=== PATIENT | female | born 1970 | race Caucasian/White ===

== ENCOUNTER 2016-09-25 13:56 | Emergency (ER) | payer SELFPAY ==
[2016-09-25 14:25] VITALS: BP 147/94
--- NOTE | 2016-09-25 14:32 | ER Document Report ---
ED Medical Screen (RME) - General Stated Complaint: POSSIBLE ALCOHOL WITHDRAW Notes: 46 yo female presents for alcohol withdrawl. brought to ED by mobile crisis. pt has referral for [facility] for detox. pt has hx/o seizures with ETOH withdrawl. last drink several hours ago. drinks 1 1/2 gallons wine/day. presently pt feels "tired and sick". no SI/HI. presently no tremors - Related Data Allergies/Adverse Reactions: No Known Allergies Allergy (Unverified 09/25/16 14:28) Physical Exam - Vital signs Vitals: Temp Pulse BP Pulse Ox 98.2 F 104 H 147/94 H 96 09/25/16 14:23 09/25/16 14:23 09/25/16 14:23 09/25/16 14:23 Course - Vital Signs Vital signs: Temp Pulse Resp BP Pulse Ox 98.2 F 104 H 18 147/94 H 96 09/25/16 14:24 09/25/16 14:24 09/25/16 14:24 09/25/16 14:24 09/25/16 14:24
[2016-09-25 14:56] LABS: APPEARANCE,URINE SLIGHTLY-CLOUDY; BILIRUBIN,URINE NEGATIVE (NEGATIVE); GLUCOSE, URINE NEGATIVE (NEGATIVE); KETONES,URINE NEGATIVE (NEGATIVE); LEUKOCYTE ESTERASE,URINE NEGATIVE (NEGATIVE); NITRITE,URINE NEGATIVE (NEGATIVE); PROTEIN,URINE NEGATIVE (NEGATIVE); URINE SPECIFIC GRAVITY 1.012; UROBILINOGEN,URINE NEGATIVE mg/dL (<2.0)
[2016-09-25] MEDS ORDERED: NORMAL SALINE 1000 ML 1,000 ML with POTASSIUM CHLORIDE 20 MEQ, MAGNESIUM SULFATE 8 MEQ,... IV PRN ×5 (14:56)
[2016-09-25 15:04] LABS: ABSOLUTE BASOPHILS # (AUTO) 0.1 10^3/uL (0.0-0.2); ABSOLUTE LYMPHOCYTES (AUTO) 1.5 10^3/uL (0.5-4.7); ABSOLUTE MONOCYTES (AUTO) 0.5 10^3/uL (0.1-1.4); ABSOLUTE NEUT (AUTO) 4.4 10^3/uL (1.7-8.2); EOSINOPHILS % (AUTO) 0.7 % (0-6); HEMATOCRIT 40.7 % (36.0-47.0); HEMOGLOBIN 13.4 g/dL (12.0-15.5); HGB HCT DIFFERENCE -0.5; LYMPHOCYTES % (AUTO) 23.1 % (13-45); MEAN CORPUSCULAR HEMOGLOBIN 33.5 pg (27.0-33.4); MEAN CORPUSCULAR VOLUME 102 fl (80-97); MONOCYTES % (AUTO) 8.3 % (3-13); RED BLOOD COUNT 4.01 10^6/uL (3.72-5.28); RED CELL DISTRIBUTION WIDTH 14.1 % (11.5-14.0); SEGMENTED NEUTROPHILS % (AUTO) 66.9 % (42-78); WHITE BLOOD COUNT 6.5 10^3/uL (4.0-10.5)
[2016-09-25 15:09] LABS: ALANINE AMINOTRANSFERASE 47 U/L (9-52); ALBUMIN 4.8 g/dL (3.5-5.0); ALCOHOL 224 mg/dL (NONE DETECTED); ALKALINE PHOSPHATASE 112 U/L (38-126); ANION GAP 13 (5-19); ASPARTATE AMINO TRANSFERASE 69 U/L (14-36); BILIRUBIN,TOTAL 0.5 mg/dL (0.2-1.3); BLOOD UREA NITROGEN 12 mg/dL (7-20); CALCIUM 9.3 mg/dL (8.4-10.2); CARBON DIOXIDE 26 mmol/L (22-30); CHLORIDE 104 mmol/L (98-107); CREATININE RESULT 0.79 mg/dL (0.52-1.25); GLUCOSE 93 mg/dL (75-110); POTASSIUM 4.4 mmol/L (3.6-5.0); SODIUM 143.3 mmol/L (137-145); TOTAL PROTEIN 7.8 g/dL (6.3-8.2)
--- NOTE | 2016-09-25 15:28 | ER Document Report ---
ED Substance Abuse / Acc. OD - General Mode of Arrival: Ambulatory Information source: Patient TRAVEL OUTSIDE OF THE [place] IN LAST 30 DAYS: No <MARILIN SUE - Last Filed: 09/25/16 16:49> <JENAE BOYER - Last Filed: 09/25/16 17:18> - General Chief Complaint: Alcohol Withdrawal Stated Complaint: POSSIBLE ALCOHOL WITHDRAW Notes: Patient is a 46-year-old female presenting to the emergency department because she wants to quit drinking and has a history of withdrawal seizures. Patient states that she is living in a toxic environment and on several waiting lists for detox programs. Patient states for the past 5-6 months, since moving to [place] from [place], she has been drinking approximately a gallon and a half of wine every day. Patient has a history of seizures with withdrawal. Today, patient's roommate called the paper supervisor on her. Patient states that her roommate is also an alcoholic and a violent manic bipolar patient who is unmedicated. (MARILIN SUE) - Related Data Allergies/Adverse Reactions: No Known Allergies Allergy (Unverified 09/25/16 14:28) Past Medical History - General Information source: Patient - Social History Smoking Status: Current Every Day Smoker Chew tobacco use (# tins/day): No Frequency of alcohol use: Heavy - 1.5 gallons daily Drug Abuse: None Family History: Reviewed & Not Pertinent Patient has suicidal ideation: No Patient has homicidal ideation: No GI Medical History: Reports: Hx Crohn's Disease Musculoskeltal Medical History: Reports Hx Arthritis <MARILIN SUE - Last Filed: 09/25/16 16:49> Review of Systems - Review of Systems Constitutional: No symptoms reported EENT: No symptoms reported Cardiovascular: No symptoms reported Respiratory: No symptoms reported Gastrointestinal: No symptoms reported Genitourinary: No symptoms reported Female Genitourinary: No symptoms reported Musculoskeletal: No symptoms reported Skin: No symptoms reported Hematologic/Lymphatic: No symptoms reported Neurological/Psychological: See HPI, Other - Withdrawal symptoms -: Yes All other systems reviewed and negative <MARILIN SUE - Last Filed: 09/25/16 16:49> Physical Exam - Vital signs Interpretation: Hypertensive, Tachycardic - General General appearance: Alert, Other - Appears anxious. - HEENT Head: Normocephalic, Atraumatic Eyes: Normal Pupils: PERRL - Respiratory Respiratory status: No respiratory distress Chest status: Nontender - Cardiovascular Rhythm: Regular Heart sounds: Normal auscultation Murmur: No - Abdominal Inspection: Normal Distension: No distension Bowel sounds: Normal Tenderness: Nontender Organomegaly: No organomegaly - Back Back: Normal, Nontender - Extremities General upper extremity: Normal inspection General lower extremity: Normal inspection - Neurological Neuro grossly intact: Yes Cognition: Normal Orientation: AAOx4 Cullen Coma Scale Eye Opening: Spontaneous Cullen Coma Scale Verbal: Oriented Danielle Coma Scale Motor: Obeys Commands Danielle Coma Scale Total: 15 Speech: Normal - Psychological Associated symptoms: Normal affect, Normal mood - Skin Skin Temperature: Warm Skin Moisture: Dry Skin Color: Normal <MARILIN SUE - Last Filed: 09/25/16 16:49> Course - Laboratory Result Diagrams: 09/25/16 14:35 09/25/16 14:35 <MARILIN SUE - Last Filed: 09/25/16 16:49> - Laboratory Result Diagrams: 09/25/16 14:35 09/25/16 14:35 <JENAE BOYER - Last Filed: 09/25/16 17:18> - Re-evaluation Re-evalutation: 09/25/16 16:56 I personally performed the services described in the documentation, reviewed and edited the documentation which was dictated to my scribe in my presence, and it accurately records my words and actions. presents emergency Department with a chief complaint of she wants to go to alcohol detoxification. She says for the last 20 years she's been drinking heavily and an she is up to a gallon and a half of wine a day. She says her current living situation is not good and she needs to get out of there so she decided today she was [place] stop drinking and hasn't had a drink in 2 hours. She says she's only intoxicated all day long and even in the middle the night. She states when she lived in [place] she would occasionally stop drinking alcohol cold turkey and would have seizures as a result of that. She's been talking to the crisis center locally and she is on a waiting list to go to alcohol rehabilitation. She is not having any symptoms of suicidal homicidal ideation on examination she is not having any active withdrawal symptoms, tremors or elevated blood pressure. Acute labs are stable including EKG calls roughly over 200. I had the mental health folks consult with her to speak with crisis to try to expedite her outpatient treatment mobile crisis is actually come give her a ride home. She is on the waiting list. The people at the detoxification center told her not to stop drinking because she had a risk of going into alcohol withdrawal. She verbalizes understanding of this is safe to be discharged home with another individual as his mobile crisis and discussed reasons for ED return sooner 09/25/16 17:16 (JENAE BOYER) - Vital Signs Vital signs: Temp Pulse Resp BP Pulse Ox 98.2 F 104 H 18 147/94 H 96 09/25/16 15:00 09/25/16 15:00 09/25/16 15:00 09/25/16 15:00 09/25/16 15:00 (MARILIN SUE) (JENAE BOYER) - Laboratory Laboratory results interpreted by me: 09/25/16 09/25/16 09/25/16 14:35 14:35 14:35 MCV 102 H MCH 33.5 H RDW 14.1 H AST 69 H Urine Blood SMALL H (MARILIN SUE) (JENAE BOYER) - EKG Interpretation by Me Additional EKG results interpreted by me: 09/25/16 17:17 EKG interpreted myself to reveal sinus rhythm at [address] segment elevation or depression (JENAE BOYER) Discharge <MARILIN SUE - Last Filed: 09/25/16 16:49> <JENAE BOYER - Last Filed: 09/25/16 17:18> - Discharge Clinical Impression: ETOH abuse Condition: Stable Disposition: HOME, SELF-CARE Instructions: Alcohol Withdrawl ([facility]) Additional Instructions: Alcohol abuse Go to the emergency room if you develop persistent vomiting, severe abdominal pain, fever, shortness of breath, hallucinations, uncontrollable tremors, or seizures. Mobile crisis is working with you to try to get to bed placement for alcohol detoxification return immediately to the emergency from for increasing worsening or new symptoms Scribe Documentation - Scribe Written by Caitlyn:: Marilin Sue 09/25/2016 15:28 acting as scribe for :: Austin <MARILIN SUE - Last Filed: 09/25/16 16:49>
[2016-09-25 16:10] LABS: URINE BARBITURATES SCREEN NEGATIVE; URINE METHADONE SCREEN NEGATIVE; URINE OPIATES LOW NEGATIVE; URINE PHENCYCLIDINE SCREEN NEGATIVE
--- NOTE | 2016-09-25 16:59 | PSYCHOLOGICAL NOTE ---
Psych Note - Psych Note Psych Note: Patient is a 46-year-old female who presents via mobile crisis ([facility]) requesting assistance for possible alcohol withdrawal and detox placement. Patient's BAL at the time of arrival is 238. Patient states for the past week she has been working with this mobile crisis center to secure a detox bed. She states she attempted to go to [facility] in [place] yesterday; however, she was too intoxicated for them to admit. Patient states she has had multiple detox placements in the past, all of which she reports were in [place]. She states she moved down here to be with friends; however, the female friend is also an alcoholic and volatile when she is drunk. Patient states they did have a verbal disagreement, but she can return there even if temporarily. Patient states she herself drinks between one or 2 gallons of wine per day. 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 Patient states she was paralyzed for 3-1/2 months in prescribed numerous pain medications which were continued for almost 10 years. Patient states she has been free of these medications, but has continued with the alcohol abuse. Patient denies any suicidal ideations. Patient denies any history of suicidal ideations and/or attempts. Patient reports her only inpatient treatment was for detox/substance abuse. Discussed with patient the detox process in [place], which is largely a voluntary procedure. Patient provided verbal consent to contact [facility] on her behalf. [facility] ([facility]) states the patient is on the wait list for each of the [facility] locations, as well as her packet to [facility] was submitted today for review. Worker reports there were no open beds at any of the above mentioned facilities, to include [facility]. Worker does state she will present to assist patient home. Patient is A&Ox4. Mood is anxious with normal affect. P patient denies suicidal /homicidal ideations, intent, plan, means. Patient denies A/VH. Thought processes were organized. Conversational speech was WNL for rate, tone, and prosody. Intellectual abilities were estimated to be under the influence. Attention and focus were fair. Insight, judgment, impulse control were fair. 291.9 (F10.99) Unspecified alcohol-related disorder Patient is psychiatrically cleared for discharge. Patient will be provided with the necessary documentation to continue to pursue detox for her alcohol abuse. Note, detox in [place] is largely a voluntary process and patient has appropriately initiated this process through the assistance of mobile crisis. Mobile tray service worker, Francy, will present in person to assist the patient home. Patient denies suicidal ideations and specifically denies any prior suicide attempts. I consulted with Dr. David in regards to the care and management of this patient. ED M.D. is in agreement with disposition and recommendations
--- NOTE | 2016-09-25 21:46 | EKG REPORT ---
SEVERITY:- NORMAL ECG - SINUS RHYTHM : Confirmed by: Zahraa To MD 25-Sep-2016 21:44:43
== END 2016-09-25 17:43 | disposition home or self-care (01) ==
LOC: ER 13:56
DX: F10.10 Alcohol abuse, uncomplicated (principal); F17.200 Nicotine dependence, unspecified, uncomplicated; R00.0 Tachycardia, unspecified
CPT/HCPCS: 93005; 99285; 36415; 80307 ×2; 83735; 85025; 81025; 80053; 81001; 93010; J3475; J3480; J3411; J7030; J3490